=== PATIENT | male | born 1950 | race Caucasian/White ===

== ENCOUNTER 2025-08-13 20:37 | Emergency (ER) | payer OTHER, SELFPAY ==
[2025-08-13] VITALS (12 sets, daily range): BP systolic 171–186; BP diastolic 100–118; PULSE 89; TEMP 36.4; O2SAT 91–97; BMI 33.0
[2025-08-13] MEDS: PREDNISONE 20 MG TABLET 60 MG PO (21:29)
[2025-08-13] MEDS: DIPHENHYDRAMINE HCL 50 MG/ML VIAL IM (21:29)
--- NOTE | 2025-08-13 21:47 | ED_ITS ---
HPI HPI - General Adult General Chief complaint: Skin/Abscess/Foreign Body Stated complaint: BITE Time Seen by Provider: 08/13/25 20:59 Source: patient Mode of arrival: walk-in Limitations: no limitations History of Present Illness HPI narrative: Patient is a 75-year-old male that presents with complaints of bug bite to his left thumb webspace. He states he was reaching in his pocket and felt it bite him and he started to get finger pain, redness, and swelling in the hand. This was an hour prior to arrival. He states the redness, swelling, and finger pain have resolved. He feels like the pain somewhat moved up to his left shoulder. He states that he also became somewhat short of breath more so than his baseline. He feels he is almost back to his baseline shortness of breath now. Related Data Home Medications ?Medication ?Instructions ?Recorded ?Confirmed No Known Home Medications 08/13/2504/01 Allergies Allergy/AdvReac Type Severity Reaction Status Date / Time No Known Drug Allergies Allergy Verified 08/13/25 20:53 Opioid HPI Opioid Management Most Recent Opioid Data: Last Pain Scale 7 Today, 20:46 Review of Systems ROS Status of ROS 10 or more systems reviewed and unremark able except as noted in history and below PFSH PFSH Social History Little interest or pleasure in doing things: not at all Feeling down, depressed, or hopeless: not at all Exam Narrative Exam Narrative: General: No distress, age-appropriate Skin: Warm, dry, no pallor. No rash. No bite site recognized where patient pointing. Head: Normocephalic, atraumatic. Neck: Supple, non-tender. Eye: Pupils are equal, round and EOMI. No scleral icterus. Ears, Nose, Mouth, and Throat: No nasal mucosal hypertrophy. Oral mucosa is moist, no posterior oropharynx erythema, uvula is mid-line Cardiovascular: Regular Rate and Rhythm without murmur, gallop or rub. Respiratory: No accessory muscle use or respiratory distress. Lungs are clear to auscultation, no wheezing, rales or rhonchi Chest Wall: no tenderness Back: No midline thoracic or lumbar vertebral tenderness. Musculoskeletal: Full ROM of all extremities, no calf or popliteal tenderness. 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 No bite wound, abscess, redness, swelling noted to the left hand. Left shoulder with full ROM and no swelling or redness. Neurological: A&O x4. No cranial nerve dysfunction observed. No truncal ataxia. Moves all extremities. Sensation intact. Psychiatric: Cooperative and interactive. Normal mood and affect. Constitutional Vital Signs, click to edit/add: Last Vital Signs Temp 97.6 F 08/13/25 20:46 Pulse 89 08/13/25 20:46 Resp 18 08/13/25 20:46 BP 177/109 H 08/13/25 21:32 Pulse Ox 96 08/13/25 21:50 O2 Del Method Room Air 08/13/25 20:46 Course Vital Signs Vital signs: Vital Signs Temperature 97.6 F 08/13/25 20:46 Pulse Rate 89 08/13/25 20:46 Respiratory Rate 18 08/13/25 20:46 Blood Pressure 186/100 H 08/13/25 20:46 Pulse Oximetry 95 08/13/25 20:46 Oxygen Delivery Method Room Air 08/13/25 20:46 Temperature 97.6 F 08/13/25 20:46 Pulse Rate 89 08/13/25 20:46 Respiratory Rate 18 08/13/25 20:46 Blood Pressure 177/109 H 08/13/25 21:32 Pulse Oximetry 96 08/13/25 21:50 Oxygen Delivery Method Room Air 08/13/25 20:46 Medical Decision Making MDM Narrative Medical decision making narrative: This is a 75-year-old male that presented to the ED with complaints of bug bite to the left hand, thumb webspace. There was initial finger pain, redness, swelling that resolved in about an hour that it took him to get to the hospital. He states that the pain moved up to his left shoulder. He did become somewhat short of breath. He does already have baseline shortness of breath and is a smoker, SOB has also improved and is almost back to his baseline. IM Benadryl 50 mg and 60 mg prednisone given on arrival. BP hypertensive, patient does not see a physician. Vitals stable. Afebrile. No respiratory distress. Patient denies any facial edema, lip or tongue swelling. On reassessment patient reports complete resolution of symptoms. No current evidence of infection, ongoing allergic reaction, or systemic envenomation. Patient discharged with clear return precautions for allergic reaction, infection, or worsening pain as patient does not see a physician and does not have a PCP. Differential Diagnosis Differential Diagnosis: Allergic reaction, bug bite Discharge Plan Discharge Chief Complaint: Skin/Abscess/Foreign Body Clinical Impression: Insect bite Patient Disposition: Home, Self-Care Time of Disposition Decision: 21:54 Condition: Good Mode of Transportation: Private Vehicle Prescriptions / Home Meds: No Action No Known Home Medications Print Language: Mohawk Instructions: Insect Bite or Sting (ED) Additional Instructions: Warning Signs ? Return to ED Immediately if Any Occur * Swelling, redness, warmth, or pus at the bite site * Recurrence of shortness of breath, wheezing, or throat/tongue swelling * New rash or hives * Severe or worsening pain in arm or hand * Fever or feeling generally unwell Referrals: Physician,Non-Staff, MD [Primary Care Provider] - 1 week Discharge Date/Time: 08/13/25 22:11
== END 2025-08-13 22:11 | disposition home or self-care (01) ==
PROVIDERS: Emergency Provider Emergency Medicine
DX: S60.362A Insect bite (nonvenomous) of left thumb, initial encounter (principal); W57.XXXA Bitten or stung by nonvenomous insect and other nonvenomous arthropods, initial encounter; R06.02 Shortness of breath; F17.200 Nicotine dependence, unspecified, uncomplicated
CPT/HCPCS: 96372; 99284; J1200; J7512